=== PATIENT | male | born 1985 | race Caucasian/White ===

== ENCOUNTER → 2019-03-02 | Day surgery (SDC) | payer BC | LOC: MSO 09:26 | DX: R19.7 Diarrhea, unspecified (principal); K21.9 Gastro-esophageal reflux disease without esophagitis; A04.8 Other specified bacterial intestinal infections; Z88.5 Allergy status to narcotic agent; Z83.79 Family history of other diseases of the digestive system; Z87.891 Personal history of nicotine dependence | CPT/HCPCS: 00813; J2704; J3010; J7120 ==

== ENCOUNTER → 2019-03-05 | Outpatient (CLI) | payer BC | LOC: LAB 13:43 | DX: R19.7 Diarrhea, unspecified (principal) ==

== ENCOUNTER → 2019-03-07 | Outpatient (CLI) | payer BC ==
[2019-03-07 18:14] LABS: EOS # 0.1 (0.04-0.40); EOS % 0.8 % (0.0-4.0); HEMATOCRIT 41.3 % (42.0-52.0); LYMPH# 2.4 (1.50-4.00); MEAN CELL VOLUME 85 fl (78-100); MEAN CORPUSCULAR HEMOGLOBIN 29 pg (27-31); MEAN CORPUSCULAR HGB CONC 34 g/dL (33-37); MEAN PLATELET VOLUME 9.1 fl (7.4-10.4); MONO # 0.5 (0.20-0.80); PLATELET COUNT 322 K/mm3 (130-400); RED BLOOD COUNT 4.85 M/mm3 (4.20-5.60); RED CELL DISTRIBUTION WIDTH 12.6 % (11.5-14.5); WHITE BLOOD COUNT 7.9 K/mm3 (4.8-10.8)
[2019-03-07 18:27] LABS: ALBUMIN 4.8 g/dL (3.5-5.0); POTASSIUM 3.9 mmol/L (3.5-5.1); SODIUM 141 mmol/L (136-145)
[2019-03-07 18:28] LABS: CALCIUM 8.4 mg/dL (8.3-10.5)
[2019-03-07 18:29] LABS: GLUCOSE 92 mg/dL (75-110); TOTAL PROTEIN 7.8 g/dL (6.4-8.3)
[2019-03-07 18:30] LABS: CARBON DIOXIDE 26 mmol/L (22-29)
[2019-03-07 18:31] LABS: D-DIMER 0.05 mg/L FEU (0.15-0.50); TOTAL BILIRUBIN 1.3 mg/dL (0.2-1.2)
[2019-03-07 18:35] LABS: AST-SGOT 22 U/L (5-34)
[2019-03-07 18:36] LABS: ALT/SGPT 17 U/L (0-55)
[2019-03-07 18:42] LABS: TROPONIN-I < 0.03 ng/mL (<0.030)
== END ==
LOC: AMSURD 17:58
PROVIDERS: Nurse Practitioner
DX: I49.8 Other specified cardiac arrhythmias (principal)

== ENCOUNTER 2019-08-15 17:12 | Emergency (ER) | payer BC ==
[~2019-08-15] VITALS: Ht 180.3 cm; Wt 70.5 kg
[2019-08-15] MEDS ORDERED: ZOLOFT 50MG50 MG PO (17:28)
[2019-08-15] MEDS ORDERED: PROTONIX TR40 M1 PO (17:28)
[2019-08-15 17:53] LABS: EOS % 0.6 % (0.0-4.0); HEMATOCRIT 40.1 % (42.0-52.0); HEMOGLOBIN 13.6 g/dL (13.5-18.0); MEAN CELL VOLUME 86 fl (78-100); MEAN CORPUSCULAR HEMOGLOBIN 29 pg (27-31); MEAN CORPUSCULAR HGB CONC 34 g/dL (33-37); MONO # 0.4 (0.20-0.80); NEU # 4.3 (1.40-6.50); PLATELET COUNT 274 K/mm3 (130-400); RED BLOOD COUNT 4.67 M/mm3 (4.20-5.60); RED CELL DISTRIBUTION WIDTH 12.9 % (11.5-14.5); WHITE BLOOD COUNT 6.8 K/mm3 (4.8-10.8)
[2019-08-15 18:04] LABS: ALBUMIN 4.6 g/dL (3.5-5.0)
[2019-08-15 18:05] LABS: POTASSIUM 3.7 mmol/L (3.5-5.1); SODIUM 140 mmol/L (136-145)
[2019-08-15 18:06] LABS: CALCIUM 9.2 mg/dL (8.3-10.5)
[2019-08-15 18:07] LABS: GLUCOSE 94 mg/dL (75-110); TOTAL PROTEIN 7.3 g/dL (6.4-8.3)
[2019-08-15 18:08] LABS: CARBON DIOXIDE 24 mmol/L (22-29)
[2019-08-15 18:09] LABS: TOTAL BILIRUBIN 1.5 mg/dL (0.2-1.2)
[2019-08-15 18:12] LABS: AST-SGOT 26 U/L (5-34)
[2019-08-15 18:13] LABS: ALT/SGPT 20 U/L (0-55)
[2019-08-15 18:32] LABS: TROPONIN-I < 0.03 ng/mL (<0.030)
[2019-08-15 18:42] LABS: D-DIMER 0.05 mg/L FEU (0.15-0.50)
[2019-08-15 21:23] VITALS: BP 117/71
== END 2019-08-15 21:25 | disposition home or self-care (01) ==
LOC: ED 17:12
PROVIDERS: Nurse Practitioner Family
DX: R06.02 Shortness of breath (principal); R53.81 Other malaise; R07.89 Other chest pain

== ENCOUNTER → 2020-11-18 | Outpatient (CLI) | payer BC ==
[~2020-11-18] MED LIST: PROTONIX TR40 M1 PO; ZOLOFT 50MG50 MG PO
[2020-11-25 10:16] LABS: PAPER WASP ALLERGEN COUNT <0.10; WHITE-FACED HORNET ALLER COUNT 0.29; YELLOW HORNET ALLERGEN COUNT 0.28; YELLOW JACKET VENOM ALLR COUNT 0.14
== END ==
LOC: LAB 07:07
DX: T63.441A Toxic effect of venom of bees, accidental (unintentional), initial encounter (principal)

== ENCOUNTER → 2020-12-17 | Outpatient (CLI) | payer BC | LOC: LAB 19:47 | DX: J02.9 Acute pharyngitis, unspecified (principal) ==

== ENCOUNTER 2024-05-29 19:32 | Emergency (ER) | payer BC ==
[~2024-05-29] VITALS: Ht 180.3 cm; Wt 72.7 kg
[2024-05-29 19:45] VITALS: BP 129/76
[2024-05-29] MEDS ORDERED: ESCITALOPRAM5 MG PO (19:45)
[2024-05-29] MEDS ORDERED: LEVOCETIRIZINE D5 MG PO (19:45)
[2024-05-29] MEDS ORDERED: Proparacaine 0.5% Ophth Soln 15 ML BOTTLE *BULK OP ONE (19:45)
== END 2024-05-29 20:19 | disposition home or self-care (01) ==
LOC: ED 19:32
DX: S05.32XA Ocular laceration without prolapse or loss of intraocular tissue, left eye, initial encounter (principal); W26.8XXA Contact with other sharp object(s), not elsewhere classified, initial encounter